=== PATIENT | female | born 1965 | race Caucasian/White ===

== ENCOUNTER 2022-05-17 15:58 | Outpatient (CLI) | payer BC | END 2022-05-17 15:59 | disposition home or self-care (01) | LOC: CSHMRI 15:58 | PROVIDERS: ATTEND Family Medicine | DX: M50.10 Cervical disc disorder with radiculopathy, unspecified cervical region (principal); M47.812 Spondylosis without myelopathy or radiculopathy, cervical region; M48.02 Spinal stenosis, cervical region | CPT/HCPCS: 72141 ==